=== PATIENT | male | born 1965 | race Caucasian/White ===

== ENCOUNTER → 2017-05-21 | Outpatient (CLI) | payer OTHER ==
[~2017-05-21] VITALS: Ht 193 cm; Wt 113.4 kg
[~2017-05-21] MED LIST: IBUP-1007 PO; LEVO200T5 PO; LISI10TA2 PO; SERT100T PO
[2017-05-21 12:44] VITALS: BP 137/68
--- NOTE | 2017-05-21 15:56 | RAD ---
Indication soft tissue mass in the upper right neck. Preliminary ultrasound images were obtained. The soft tissue mass, in the upper right neck just lateral to the midline is noted. Maintenance Inspector images were saved. Image guided biopsy was discussed with the patient. The risks of infection and bleeding were outlined. The possibility of a nondiagnostic study was also discussed. The patient understood the risks and limitations associated with the procedure and wished to proceed. The skin was prepped and draped in the routine fashion. Local anesthesia was called percent lidocaine. Under ultrasound guidance 4 FNA samples were obtained with 25-gauge needles. Subsequently 2 Temno samples were obtained with a 20-gauge core biopsy system. Patient tolerated the procedure unremarkably. The patient was watched in the department for approximately 15 minutes following the procedure and discharged with appropriate instructions. IMPRESSION: Successful ultrasound-guided sampling of soft tissue mass in the upper right neck
--- NOTE | 2017-05-22 14:31 | PATHOLOGY ---
PATHOLOGY REPORT * * * * * * * * FINAL DIAGNOSIS: Fibroadipose muscular tissue "right neck mass": - Fibroadipose muscular tissue. - There is no evidence of malignancy. - See comment. COMMENT: The material biopsy may not be tax compliance representative, suggest radiologic and clinical correlation. No thyroid tissue is seen This case was also reviewed by Dr. Destiny Ellington ([facility]:mm; 05/22/2017) REPORT ELECTRONICALLY SIGNED BY: Addison Cleaning M.D. DATE/TIME: 05/22/2017 14:30 * * * * * * * * GROSS PATHOLOGY: Received in formalin labeled "Prabhakar Edwards, right neck biopsy," are two, fragmented needle cores of lucas soft tissue ranging from 0.2 to 0.3 cm in length, which are submitted entirely in cassette A1. Multiple slides will be requested. ([facility]; 05/21/17) INITIAL CPT CODE(S): A; 58583 Professional services performed [place] [facility] [place] [address] Technical services performed by [facility] at [address] [place] [address]. Johanny Espinosa NP, [facility], fax: SPECIMEN(S) RECEIVED: A.Right neck mass CLINICAL HISTORY: Right neck mass, s/p thyroidectomy for benign disease in May of 2015 PATIENT: PRABHAKAR EDWARDS /AGE: 804/25/1965 (Age: 52) PATIENT #: [id number] ALT CASE #: SPECIMEN COLLECTION DATE: 05/21/2017 SPECIMEN RECEIVED DATE: 05/21/2017 [facility] - [address] [place] [address] - PHONE: [phone] * * * END OF REPORT * * *
--- NOTE | 2017-05-22 14:39 | PATHOLOGY ---
CYTOPATHOLOGY REPORT CLINICAL HISTORY: Right Neck Mass. S/P thyroidectomy for benign disease 05/2015. See also [id number]. SPECIMEN(S) RECEIVED: A.Fine needle aspiration, Right neck FINAL DIAGNOSIS: Fine needle aspiration, right neck: - Steele category: Follicular lesion of undetermined significance. - Specimen consists of both macro and microfollicles with colloid and macrophages. Rare intranuclear cytoplasmic inclusions are also seen. (see comment) COMMENT: The differential includes an adenomatoid nodule, however a follicular neoplasm cannot be entirely excluded as there are a few microfollicles and rare intranuclear cytoplasmic inclusions. The biopsy ([id number]) is not hobbies and crafts sales representative and does not contain any thyroid follicles for evaluation. Suggest re-biopsy if clinically indicated. ([facility]:mgr; 05/22/2017) PATHOLOGIST: Addison Cleaning M.D. REPORT ELECTRONICALLY SIGNED BY: Addison Cleaning M.D. DATE/TIME: 05/22/2017 14:38 GROSS PATHOLOGY: A. Fine needle aspiration, Right neck: The specimen is labeled "Prabhakar Edwards" and consists of four fixed slides and two air dried slides. Thirty mL of clear pink tinted fluid in fixative from the needle rinse is also submitted and one ThinPrep slide and a alcohol fixed cell block were prepared from this material. (mm 05.21.2017) WATER FILTRATION TECHNICIAN(S): BATOOL Haq([facility]) INITIAL CPT CODE(S): A; 26981, 31934 Professional services performed [place] [facility] [place] [address] Technical services performed by [facility] at [address] [place] [address], [address], [place] [address]. Johanny Espinosa INORGANIC CHEMICAL TECHNICIAN [facility] PATIENT: PRABHAKAR EDWARDS /AGE: 804/25/1965 (Age: 52) SEX: M PATIENT #: [id number] ALT CASE #: SPECIMEN COLLECTION DATE: 05/21/2017 SPECIMEN RECEIVED DATE: 05/21/[address] [facility] [address] [place] [address], [address] [place] [address] PHONE: [phone] DIRECTOR: Emmanuel Calle M.D. * * * END OF REPORT * * *
== END | disposition home or self-care (01) ==
LOC: US 11:43 → EEVIPCON 11:43
PROVIDERS: ATTEND Nurse Practitioner Family
DX: R22.1 Localized swelling, mass and lump, neck (principal)
CPT/HCPCS: 60300; 76942; 88173; 88305